=== PATIENT | female | born 1950 | race Hispanic/Latino ===

== ENCOUNTER → 2022-10-20 | Day surgery (SDC) | payer MEDICARE ==
[2022-10-18 14:37] LABS: BASOPHILS % 0.6 % (0.0-1.0); EOSINOPHILS # (AUTO) 0.2 (0.0-0.4); EOSINOPHILS % 2.3 % (0.0-6.0); HEMATOCRIT 37.4 % (34.2-44.1); HEMOGLOBIN 11.9 g/dL (12.0-16.0); LYMPHOCYTES # (AUTO) 2.6 (1.0-3.2); LYMPHOCYTES % 38.8 % (18.0-39.1); MEAN CORPUSCULAR HEMOGLOBIN 25.5 pg (28-32); MEAN CORPUSCULAR HGB CONC 31.8 g/dL (31-35); MEAN CORPUSCULAR VOLUME 80.3 fL (81-99); MONOCYTES # (AUTO) 0.5 (0.2-0.8); MONOCYTES % 7.3 % (4.4-11.3); NEUTROPHILS # (AUTO) 3.3 (2.1-6.9); NEUTROPHILS % 50.7 % (38.7-80.0); PLATELET COUNT 103 x10e3/uL (140-360); RED BLOOD COUNT 4.66 x10e6/uL (3.6-5.1); RED CELL DISTRIBUTION WIDTH 15.2 % (11.7-14.4)
[~2022-10-20] MED LIST: ASPIR-LOW81 MG PO; CIPRO500 MG PO; DICLOFENAC SODI50 MG PO; GLIMEPIRIDE4 MG PO; LACTATED RINGER'S 1,000 ML ONE; LEVOTHYROXINE50 MCG PO; LIDOCAINE HCL 2% LOCAL INJ 5 ML SDV VIAL INJ ONE; LIPITOR10 MG PO; LISINOPRIL-HCT1 EACH PO; METFORMIN HCL500 MG PO; PHENERGAN25 MG/1 ML PO; PRAVASTATIN SOD40 MG PO; PROPOFOL IV EMULSION 10 MG/ML 20 ML VIAL ONE; TYLENOL # 31 EA PO
[2022-10-20 17:41] VITALS: TEMP 98.4
[2022-10-20 17:55] VITALS: BP 140/85; PULSE 59; RESP 16; O2SAT 98
== END | disposition home or self-care (01) ==
LOC: OR 11:55
PROVIDERS: ATTEND Internal Medicine Gastroenterology
DX: Z12.11 Encounter for screening for malignant neoplasm of colon (principal); D12.2 Benign neoplasm of ascending colon; D12.3 Benign neoplasm of transverse colon; K64.8 Other hemorrhoids; E03.9 Hypothyroidism, unspecified; E78.5 Hyperlipidemia, unspecified; E11.9 Type 2 diabetes mellitus without complications; I10 Essential (primary) hypertension; R74.8 Abnormal levels of other serum enzymes; D69.6 Thrombocytopenia, unspecified; R01.1 Cardiac murmur, unspecified; Z01.810 Encounter for preprocedural cardiovascular examination; Z01.812 Encounter for preprocedural laboratory examination; Z79.84 Long term (current) use of oral hypoglycemic drugs; Z79.899 Other long term (current) drug therapy; Z68.30 Body mass index [BMI] 30.0-30.9, adult
CPT/HCPCS: 36415 ×2; 45384; 82948; 85025; 88305; 93005; J2001; J2704; J7121; 45378; 45385

== ENCOUNTER → 2022-12-29 | Day surgery (SDC) | payer MEDICARE ==
[2022-12-26 12:57] LABS: BASOPHILS % 0.7 % (0.0-1.0); EOSINOPHILS # (AUTO) 0.4 (0.0-0.4); EOSINOPHILS % 7.4 % (0.0-6.0); HEMATOCRIT 37.8 % (34.2-44.1); HEMOGLOBIN 12.2 g/dL (12.0-16.0); LYMPHOCYTES # (AUTO) 2.2 (1.0-3.2); LYMPHOCYTES % 36.7 % (18.0-39.1); MEAN CORPUSCULAR HEMOGLOBIN 26.3 pg (28-32); MEAN CORPUSCULAR HGB CONC 32.3 g/dL (31-35); MEAN CORPUSCULAR VOLUME 81.6 fL (81-99); MONOCYTES # (AUTO) 0.5 (0.2-0.8); MONOCYTES % 7.7 % (4.4-11.3); NEUTROPHILS # (AUTO) 2.8 (2.1-6.9); NEUTROPHILS % 47.3 % (38.7-80.0); PLATELET COUNT 119 x10e3/uL (140-360); RED BLOOD COUNT 4.63 x10e6/uL (3.6-5.1)
[~2022-12-29] MED LIST changes: +POVIDONE IODINE 0.05% 0.05 % ML PO ONE
[2022-12-29 13:22] VITALS: TEMP 97
[2022-12-29 13:48] VITALS: BP 130/83; PULSE 72; RESP 18; O2SAT 99
== END | disposition home or self-care (01) ==
LOC: OR 08:43
PROVIDERS: ATTEND Internal Medicine Gastroenterology
DX: E61.1 Iron deficiency (principal); K29.50 Unspecified chronic gastritis without bleeding; K44.9 Diaphragmatic hernia without obstruction or gangrene; K31.89 Other diseases of stomach and duodenum; R19.7 Diarrhea, unspecified; R19.5 Other fecal abnormalities; R74.8 Abnormal levels of other serum enzymes; D69.6 Thrombocytopenia, unspecified; K74.00 Hepatic fibrosis, unspecified; E11.9 Type 2 diabetes mellitus without complications; I10 Essential (primary) hypertension; E78.5 Hyperlipidemia, unspecified; M06.9 Rheumatoid arthritis, unspecified; Z01.810 Encounter for preprocedural cardiovascular examination; Z01.812 Encounter for preprocedural laboratory examination; Z79.84 Long term (current) use of oral hypoglycemic drugs; Z79.899 Other long term (current) drug therapy; Z68.30 Body mass index [BMI] 30.0-30.9, adult
CPT/HCPCS: 36415 ×2; 43239; 82948; 85025; 88305; 88342; 93005; J2001; J2704; J7121

== ENCOUNTER 2024-07-12 03:03 | Inpatient (IN) | payer MEDICARE ==
[2024-07-12] VITALS (9 sets, daily range): BP systolic 120–168; BP diastolic 71–94; PULSE 65–78; RESP 16–20; TEMP 97.6–98.3; O2SAT 96–100
[~2024-07-12] VITALS: Ht 144.8 cm; Wt 63.5 kg
[~2024-07-12 03:03] MED LIST changes: +AMOX TR-K CLV1 EAC2 PO; -LACTATED RINGER'S 1,000 ML ONE; -LIDOCAINE HCL 2% LOCAL INJ 5 ML SDV VIAL INJ ONE; +METRONIDAZOLE500 MG PO; -POVIDONE IODINE 0.05% 0.05 % ML PO ONE; -PROPOFOL IV EMULSION 10 MG/ML 20 ML VIAL ONE
[2024-07-12] MEDS: SODIUM CHLORIDE 0.9% 1000ML 1,000 ML IV STA (03:38)
[2024-07-12] MEDS: KETOROLAC TROMETHAMINE 30 MG/ML VIAL IV STA (03:39)
[2024-07-12] MEDS: ONDANSETRON HCL INJ 2MG/ML 2ML 2 MG/ML VIAL IV STA (03:39)
[2024-07-12 03:52] LABS: BASOPHILS % 0.4 % (0.0-1.0); EOSINOPHILS # (AUTO) 0.1 (0.0-0.4); HEMATOCRIT 39.2 % (34.2-44.1); HEMOGLOBIN 12.9 g/dL (12.0-16.0); LYMPHOCYTES # (AUTO) 2.3 (1.0-3.2); LYMPHOCYTES % 32.7 % (18.0-39.1); MEAN CORPUSCULAR HEMOGLOBIN 27.9 pg (28-32); MEAN CORPUSCULAR HGB CONC 32.9 g/dL (31-35); MEAN CORPUSCULAR VOLUME 84.8 fL (81-99); MONOCYTES # (AUTO) 0.4 (0.2-0.8); MONOCYTES % 6.1 % (4.4-11.3); NEUTROPHILS # (AUTO) 4.1 (2.1-6.9); NEUTROPHILS % 58.2 % (38.7-80.0); PLATELET COUNT 82 x10e3/uL (140-360); RED BLOOD COUNT 4.62 x10e6/uL (3.6-5.1); RED CELL DISTRIBUTION WIDTH 13.6 % (11.7-14.4); WHITE BLOOD COUNT 7.03 x10e3/uL (4.8-10.8)
[2024-07-12 04:07] LABS: ALBUMIN 4.1 g/dL (3.5-5.0); ALBUMIN/GLOBULIN RATIO 1.6 (0.8-2.0); ANION GAP 17.5 mmol/L (8-16); BILIRUBIN,TOTAL 0.7 mg/dL (0.2-1.2); CALCIUM 9.7 mg/dL (8.4-10.2); CREATININE, SERUM 0.7 mg/dL (0.57-1.11); POTASSIUM 3.5 mmol/L (3.5-5.1); TOTAL PROTEIN 6.7 g/dL (6.5-8.1)
[2024-07-12] MEDS: Morphine 4mg INJECTION 4 MG/ML INJ IV STA (04:15)
[2024-07-12 04:18] LABS: CLARITY,URINE CLOUDY (CLEAR); COLOR,URINE RED (YELLOW); GLUCOSE, URINE NEGATIVE (NEGATIVE); KETONES,URINE NEGATIVE (NEGATIVE); LEUKOCYTE ESTERASE ,URINE NEGATIVE (NEGATIVE); NITRITE,URINE NEGATIVE (NEGATIVE); PH,URINE 7 (5 - 7); PROTEIN,URINE DIPSTICK 2+ (NEGATIVE)
[2024-07-12 04:19] LABS: BACTERIA,URINE MODERATE /HPF; BILIRUBIN,URINE NEGATIVE (NEGATIVE); EPITHELIAL CELLS,URINE FEW /LPF; RBC,URINE >50 /HPF (0-5); URINE UROBILINOGEN 0.2 mg/dL (0.2 - 1)
[2024-07-12] MEDS: ONDANSETRON HCL 4 MG ORAL DISINTEGRATING TAB PO STA (04:43)
[2024-07-12] MEDS ORDERED: Morphine 4mg INJECTION 4 MG/ML INJ IV PRN (05:00)
[2024-07-12] MEDS: SODIUM CHLORIDE 0.9% 1000ML 1,000 ML IV SCH (06:35)
[2024-07-12] MEDS ORDERED: MELATONIN 3 MG TAB PO PRN (09:00)
[2024-07-12] MEDS ORDERED: KETOROLAC TROMETHAMINE 30 MG/ML VIAL IM PRN (09:00)
[2024-07-12] MEDS ORDERED: DOCUSATE SODIUM 100 MG CAP PO PRN (09:00)
[2024-07-12] MEDS ORDERED: DEXTROSE 50% SYRINGE 50 ML IV PRN (09:00)
[2024-07-12] MEDS ORDERED: ALBUTEROL/IPRATROPIUM 3 ML NEB NEB PRN (09:00)
[2024-07-12] MEDS: LEVOTHYROXINE SODIUM 25 MCG TABLET PO SCH (11:54)
[2024-07-12] MEDS: INSULIN REGULAR, HUMAN 100 UNIT/1 ML SQ SCH (11:59)
[2024-07-12] MEDS: ONDANSETRON HCL INJ 2MG/ML 2ML 2 MG/ML VIAL IV PRN (12:03)
[2024-07-12] MEDS: SIMETHICONE 80 MG CHEW PO PRN (12:04)
[2024-07-12 15:05] LABS: CHOL/HDL RATIO 2.9 (3.0-3.6)
[2024-07-12] MEDS: ACETAMINOPHEN 325 MG TAB PO PRN (21:10)
[2024-07-12] MEDS: ATORVASTATIN 20 MG TAB PO SCH (21:11)
[2024-07-13] VITALS (9 sets, daily range): BP systolic 127–167; BP diastolic 66–99; PULSE 65–79; RESP 18–20; TEMP 98.1–98.7; O2SAT 95–100
[2024-07-13 06:56] LABS: BASOPHILS % 0.5 % (0.0-1.0); EOSINOPHILS # (AUTO) 0.2 (0.0-0.4); EOSINOPHILS % 3.2 % (0.0-6.0); HEMATOCRIT 35.7 % (34.2-44.1); HEMOGLOBIN 11.5 g/dL (12.0-16.0); LYMPHOCYTES # (AUTO) 2.2 (1.0-3.2); LYMPHOCYTES % 39.6 % (18.0-39.1); MEAN CORPUSCULAR HEMOGLOBIN 27.4 pg (28-32); MEAN CORPUSCULAR HGB CONC 32.2 g/dL (31-35); MONOCYTES # (AUTO) 0.4 (0.2-0.8); MONOCYTES % 7.3 % (4.4-11.3); NEUTROPHILS # (AUTO) 2.8 (2.1-6.9); NEUTROPHILS % 49.2 % (38.7-80.0); PLATELET COUNT 79 x10e3/uL (140-360); RED CELL DISTRIBUTION WIDTH 13.8 % (11.7-14.4); WHITE BLOOD COUNT 5.65 x10e3/uL (4.8-10.8)
[2024-07-13 07:30] LABS: ALBUMIN 3.5 g/dL (3.5-5.0); ALBUMIN/GLOBULIN RATIO 1.5 (0.8-2.0); ANION GAP 15.3 mmol/L (8-16); BILIRUBIN,TOTAL 0.5 mg/dL (0.2-1.2); CALCIUM 8.2 mg/dL (8.4-10.2); CREATININE, SERUM 0.63 mg/dL (0.57-1.11); TOTAL PROTEIN 5.9 g/dL (6.5-8.1)
[2024-07-13 07:38] LABS: POTASSIUM 3.3 mmol/L (3.5-5.1)
[2024-07-13] MEDS: METOPROLOL TARTRATE INJ 1 MG/ML VIAL IV PRN (21:34)
[2024-07-14] VITALS (7 sets, daily range): BP systolic 137–167; BP diastolic 66–96; PULSE 61–78; RESP 17–19; TEMP 97.5–98.1; O2SAT 98–100
[2024-07-14 06:05] LABS: BASOPHILS % 0.6 % (0.0-1.0); EOSINOPHILS # (AUTO) 0.3 (0.0-0.4); EOSINOPHILS % 4.7 % (0.0-6.0); HEMATOCRIT 37.2 % (34.2-44.1); HEMOGLOBIN 12.4 g/dL (12.0-16.0); LYMPHOCYTES # (AUTO) 2.1 (1.0-3.2); MEAN CORPUSCULAR HEMOGLOBIN 28.1 pg (28-32); MEAN CORPUSCULAR HGB CONC 33.3 g/dL (31-35); MEAN CORPUSCULAR VOLUME 84.2 fL (81-99); MONOCYTES # (AUTO) 0.5 (0.2-0.8); NEUTROPHILS # (AUTO) 3.3 (2.1-6.9); NEUTROPHILS % 53.4 % (38.7-80.0); PLATELET COUNT 81 x10e3/uL (140-360); RED BLOOD COUNT 4.42 x10e6/uL (3.6-5.1); RED CELL DISTRIBUTION WIDTH 13.9 % (11.7-14.4); WHITE BLOOD COUNT 6.22 x10e3/uL (4.8-10.8)
[2024-07-14 06:41] LABS: ANION GAP 15.4 mmol/L (8-16); CALCIUM 8.7 mg/dL (8.4-10.2); CREATININE, SERUM 0.59 mg/dL (0.57-1.11)
[2024-07-14 06:42] LABS: POTASSIUM 3.4 mmol/L (3.5-5.1)
[2024-07-14] MEDS ORDERED: CEPHALEXIN500 MG PO (14:27)
== END 2024-07-14 14:50 | disposition home or self-care (01) | DRG 690 ==
LOC: ER 03:07 → ERHOLD 05:07 → MED/SURG3 13:20
PROVIDERS: ADMIT Internal Medicine; ATTEND Internal Medicine
DX: N13.6 Pyonephrosis (principal); K74.60 Unspecified cirrhosis of liver; E11.9 Type 2 diabetes mellitus without complications; I10 Essential (primary) hypertension; N63.10 Unspecified lump in the right breast, unspecified quadrant; E78.5 Hyperlipidemia, unspecified; R31.29 Other microscopic hematuria; E03.9 Hypothyroidism, unspecified; E66.9 Obesity, unspecified; K82.8 Other specified diseases of gallbladder; Z68.30 Body mass index [BMI] 30.0-30.9, adult; Z79.84 Long term (current) use of oral hypoglycemic drugs; Z79.890 Hormone replacement therapy; Z90.49 Acquired absence of other specified parts of digestive tract; Z90.710 Acquired absence of both cervix and uterus
CPT/HCPCS: 36415; 74018; 74176; 80048; 80053; 80061; 81001; 82948; 83036; 83690; 85025; 87086; 94799; 99284; J0696; J1885; J2270; J2405; J7030

== ENCOUNTER → 2024-10-10 | Outpatient (REF) | payer MEDICARE ==
[~2024-10-10] MED LIST changes: +CEPHALEXIN500 MG PO; +FIBER TABS625 MG PO; +VITAMIN D31250 MCG PEG
== END ==
LOC: CARD 08:00 → EDSTATUS 10-14 12:30
PROVIDERS: ATTEND Internal Medicine Gastroenterology
DX: K76.89 Other specified diseases of liver (principal); K74.00 Hepatic fibrosis, unspecified; K74.60 Unspecified cirrhosis of liver; Z12.11 Encounter for screening for malignant neoplasm of colon; K30 Functional dyspepsia; E61.1 Iron deficiency; R03.0 Elevated blood-pressure reading, without diagnosis of hypertension
CPT/HCPCS: 93005

== ENCOUNTER → 2024-11-11 | Day surgery (SDC) | payer MEDICARE ==
[2024-11-10 09:25] LABS: BASOPHILS % 0.5 % (0.0-1.0); EOSINOPHILS # (AUTO) 0.1 (0.0-0.4); EOSINOPHILS % 2.3 % (0.0-6.0); HEMATOCRIT 36.5 % (34.2-44.1); HEMOGLOBIN 12.1 g/dL (12.0-16.0); LYMPHOCYTES # (AUTO) 1.7 (1.0-3.2); LYMPHOCYTES % 38.5 % (18.0-39.1); MEAN CORPUSCULAR HEMOGLOBIN 27.4 pg (28-32); MEAN CORPUSCULAR HGB CONC 33.2 g/dL (31-35); MEAN CORPUSCULAR VOLUME 82.8 fL (81-99); MONOCYTES # (AUTO) 0.3 (0.2-0.8); MONOCYTES % 5.6 % (4.4-11.3); NEUTROPHILS # (AUTO) 2.4 (2.1-6.9); NEUTROPHILS % 52.9 % (38.7-80.0); PLATELET COUNT 76 x10e3/uL (140-360); RED BLOOD COUNT 4.41 x10e6/uL (3.6-5.1); WHITE BLOOD COUNT 4.44 x10e3/uL (4.8-10.8)
[2024-11-10 10:52] LABS: PROTHROMBIN TIME 14.1 seconds (11.9-14.5)
[2024-11-10 10:53] LABS: PARTIAL THROMBOPLASTIN TIME 28.4 seconds (23.8-35.5)
[2024-11-10 15:53] LABS: ALBUMIN 3.9 g/dL (3.5-5.0); ALBUMIN/GLOBULIN RATIO 1.4 (0.8-2.0); ANION GAP 18.8 mmol/L (8-16); BILIRUBIN,TOTAL 0.7 mg/dL (0.2-1.2); CALCIUM 9.4 mg/dL (8.4-10.2); CREATININE, SERUM 0.79 mg/dL (0.57-1.11); POTASSIUM 3.8 mmol/L (3.5-5.1); TOTAL PROTEIN 6.7 g/dL (6.5-8.1)
[~2024-11-11] MED LIST changes: +LIDOCAINE HCL 2% LOCAL INJ 5 ML SDV VIAL INJ ONE; +PROPOFOL IV EMULSION 10 MG/ML 20 ML VIAL ONE
[2024-11-11] MEDS: LACTATED RINGER'S 1,000 ML ONE (07:08)
[2024-11-11 08:55] VITALS: TEMP 98.6
[2024-11-11 09:25] VITALS: BP 151/83; PULSE 66; RESP 16; O2SAT 98
== END | disposition home or self-care (01) ==
LOC: OR 05:22
PROVIDERS: ATTEND Internal Medicine Gastroenterology
DX: K74.60 Unspecified cirrhosis of liver (principal); I85.10 Secondary esophageal varices without bleeding; K29.50 Unspecified chronic gastritis without bleeding; K31.89 Other diseases of stomach and duodenum; K25.9 Gastric ulcer, unspecified as acute or chronic, without hemorrhage or perforation; K44.9 Diaphragmatic hernia without obstruction or gangrene; K76.89 Other specified diseases of liver; K74.00 Hepatic fibrosis, unspecified; K21.9 Gastro-esophageal reflux disease without esophagitis; A04.8 Other specified bacterial intestinal infections; E61.1 Iron deficiency; E11.9 Type 2 diabetes mellitus without complications; I10 Essential (primary) hypertension; E78.5 Hyperlipidemia, unspecified; E03.9 Hypothyroidism, unspecified; N20.0 Calculus of kidney; Z01.812 Encounter for preprocedural laboratory examination; Z79.84 Long term (current) use of oral hypoglycemic drugs; Z79.899 Other long term (current) drug therapy
CPT/HCPCS: 36415 ×2; 43239; 80053; 82948; 85025; 85610; 85730; 88305; 88342; J2003; J2704; J7121

== ENCOUNTER → 2025-03-09 | Outpatient (REF) | payer MEDICARE ==
[~2025-03-09] MED LIST changes: -LIDOCAINE HCL 2% LOCAL INJ 5 ML SDV VIAL INJ ONE; -PROPOFOL IV EMULSION 10 MG/ML 20 ML VIAL ONE
== END ==
LOC: US 08:39
PROVIDERS: ATTEND Nurse Practitioner Family
DX: K74.60 Unspecified cirrhosis of liver (principal); Z79.899 Other long term (current) drug therapy
CPT/HCPCS: 76705